=== PATIENT | female | born 2000 | race Caucasian/White ===

== ENCOUNTER 2021-06-20 18:40 | Outpatient (CLI) | payer MEDICAID ==
--- NOTE | 2021-06-20 18:45 | NUR ---
Ambulatory to unit, accompanied by signiicant other. Oriented to romm, monitor plan of care. Pt reports "I fell on my stomach yesterday and haven't felt the baby move since." PT reports her ob dr is in [place], [place] where she lives, and she is just up here visitting her boyfriend. Denies surgical history, reports EDC 07/03/21. On Labetalol 200mg po BID for elevated BP in . Denies LOF or vaginal bleeding since fall, "just some cramping"
[2021-06-20 18:55] VITALS: BP 147/95; PULSE 94
[2021-06-20 19:04] VITALS: BP 147/91; PULSE 100; TEMP 98.7
[2021-06-20] MEDS ORDERED: TRANDATE 200MG200 MG PO (19:18)
--- NOTE | 2021-06-20 19:55 | NUR ---
Labetolol 200mg po per Dr's order. Reminded pt "that this is your regular pm dose. Do not take a dose when you get home"Pt verbalizes understanding.
[2021-06-20 20:00] VITALS: BP 159/94; PULSE 82
[2021-06-20 20:12] LABS: COLLECTION METHOD CLEAN CATCH
[2021-06-20 20:21] LABS: BASO # 0.1 K/mm3 (0.0-0.2); BASO % 0.6 % (0.0-2.0); EOS % 0.2 % (0-4.0); GRAN # 8.2 K/mm3 (1.4-6.5); GRAN % 71.1 % (42.2-75.2); HEMATOCRIT 28.7 % (35.0-45.0); HEMOGLOBIN 9.1 g/dl (12.0-15.0); LYMPH # 2.5 K/mm3 (1.2-3.4); LYMPH % 21.1 % (20.0-51.0); MEAN CELL VOLUME 82 fl (80.0-95.0); MEAN CORPUSCULAR HEMOGLOBIN 26 pg (26.0-32.0); MEAN CORPUSCULAR HGB CONC 32 g/dl (33.0-37.0); MEAN PLATELET VOLUME 11.6 fl (7.4-10.4); MONO # 0.8 K/mm3 (0.1-0.6); MONO % 6.6 % (1.7-9.3); PLATELET COUNT 291 K/mm3 (130-400); RED BLOOD COUNT 3.51 M/mm3 (4.10-5.30); REDCELL DISTRIBUTION WIDTH-CV 13.8 % (11.5-14.5)
[2021-06-20 20:27] LABS: MUCOUS Present (NOT PRESENT); PH 7 (5-8); URINE APPEARANCE Hazy (CLEAR/HAZY); URINE BACTERIA Rare (NONE SEEN); URINE BILIRUBIN Negative (NEGATIVE); URINE BLOOD Negative (NEGATIVE); URINE COLOR Yellow (YELLOW); URINE GLUCOSE Negative (NEGATIVE); URINE KETONE Negative (NEGATIVE); URINE LEUKOCYTE ESTERASE 3+ (NEGATIVE); URINE NITRATE Negative (NEGATIVE); URINE PROTEIN(semi-quant) 2+ (NEGATIVE); URINE RBC 0-2 /hpf (0-2); URINE UROBILINOGEN Negative (NEGATIVE)
[2021-06-20 20:29] LABS: ALBUMIN 2.6 gm/dL (3.5-5.0); BILIRUBIN,TOTAL 0.2 mg/dL (0.2-1.2); CALCIUM 9.3 mg/dL (8.4-10.2); CREATININE, serum 0.72 mg/dL (0.57-1.11); POTASSIUM 3.6 mmol/L (3.5-4.5); TOTAL PROTEIN 6.4 gm/dL (6.2-8.1)
[2021-06-20 20:30] VITALS: BP 146/88; PULSE 82
--- NOTE | 2021-06-20 21:00 | NUR ---
Discharge instructions reviewed with pt and significant other. Questions invited and answered. Ambulatory off unit.
== END 2021-06-20 21:00 | disposition home or self-care (01) ==
LOC: LDRO 18:40 → LDR 19:00 → LDRO 21:00
PROVIDERS: Obstetrics & Gynecology
DX: O9A.213 Injury, poisoning and certain other consequences of external causes complicating pregnancy, third trimester (principal); Z3A.38 38 weeks gestation of pregnancy; W18.30XA Fall on same level, unspecified, initial encounter
CPT/HCPCS: OP